=== PATIENT | male | born 1980 | race Caucasian/White ===

== ENCOUNTER 2022-01-17 11:04 | Emergency (ER) | payer SELFPAY ==
[2022-01-17 11:25] LABS: Absolute Neutrophil Ct (ANC) 6.06 x10^3/uL (1.4-6.9); Basophil (Absolute #) 0.04 x10^3/uL (0-0.4); Eosinophil % 2.2 % (0.00-5.0); Eosinophil (Absolute #) 0.18 x10^3/uL (0-0.5); Hematocrit 48.2 % (42-50); Hemoglobin 15.9 g/dL (12.5-18.0); Lymphocyte (Absolute #) 0.95 x10^3/uL (1.0-4.6); Lymphocytes % 11.8 % (24.0-44.0); Mean Cell Volume 81.3 fL (78-100); Mean Corpuscular Hemoglobin 26.8 pg (26-32); Mean Platelet Volume 10.6 fL (7.5-11.0); Monocyte (Absolute #) 0.79 x10^3/uL (0.0-1.3); Monocytes % 9.8 % (0.0-12.0); Neutrophil % 75.2 % (36.0-66.0); Platelet Count 265 x10^3/uL (150-450); Red Blood Count 5.93 x10^6/uL (4.1-5.6); White Blood Count 8.1 x10^3/uL (4.0-10.5)
[2022-01-17] MEDS ORDERED: BABY ASPIRIN 81 MG CHEW ONE (11:36)
[2022-01-17] MEDS ORDERED: Zofran 4 MG/2 ML VIAL ONE (11:36)
[2022-01-17] MEDS ORDERED: MORPHINE SULFATE 4 MG INJ ONE (11:37)
[2022-01-17] MEDS ORDERED: BABY ASPIRIN 81 MG CHEW PO ONE (11:41)
[2022-01-17 11:42] LABS: D-DIMER QUANTITATIVE 0.19 mg/L (0.0-0.50); INR 1.02 (0.8-3.0); PROTIME 10.8 SECONDS (9.4-12.5); PTT 29.1 SECONDS (25.1-36.5)
[2022-01-17 11:47] LABS: ALBUMIN 4.8 g/dL (3.5-5.0); ALKALINE PHOSPHATASE 111 U/L (38-126); ANION GAP 9.3 MEQ/L (5-15); BLOOD UREA NITROGEN 19 mg/dL (9-20); CHLORIDE 103 mmol/L (98-107); CK-Creatinine Phosphokinase 462 U/L (55-170); Calcium 8.7 mg/dL (8.4-10.2); Carbon Dioxide 31 mmol/L (22-30); Creatinine 1 1.04 mg/dL (0.66-1.25); EST GLOMERULAR FILTRATION RATE > 60.0 ML/MIN; Glucose 83 mg/dL (74-106); NT PRO BNP 56.8 pg/mL (0-450); Potassium 4.4 mmol/L (3.5-5.1); SGOT/AST 37 U/L (17-59); SGPT/ALT 30 U/L (0-50); SODIUM 139 mmol/L (137-145)
--- NOTE | 2022-01-17 12:01 | XRAY ---
Indication: Chest pain. Comparison: None Portable chest demonstrates normal heart, lungs, and bony thorax with incidental azygous lobe.
[2022-01-17] MEDS ORDERED: Sodium Chloride 0.9% 1000 ML 1,000 ML IV STA (12:32)
[2022-01-17] MEDS ORDERED: Sodium Chloride 0.9% 1000 ML 1,000 ML ONE (12:38)
[2022-01-17 12:54] LABS: Amphetamine,Urine NEGATIVE (NEGATIVE); Barbiturate,Urine NEGATIVE (NEGATIVE); Benzodiazepine,Urine NEGATIVE (NEGATIVE); Cocaine,Urine NEGATIVE (NEGATIVE); Methadone,Urine NEGATIVE (NEGATIVE); Opiate,Urine NEGATIVE (NEGATIVE); PCP,Urine NEGATIVE (NEGATIVE); THC,Urine NEGATIVE (NEGATIVE)
[2022-01-17 13:23] VITALS: BP 208/131; PULSE 76; O2SAT 99
--- NOTE | 2022-01-17 13:31 | ERPHSYRPT ---
- History of Present Illness Time Seen by Provider: 01/17/22 11:09 Historian: patient Exam Limitations: no limitations Patient Subjective Stated Complaint: Chest pain Triage Nursing Assessment: Patient ambulated back to ED and transferred self to bed. Patient A+O X 3. Patient's skin pink,warm and dry. Patient complains of chest pain that started 20 min prior to ED visit. 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 Patient complains of pain 07/30. Physician History: 41 years old male with history of hypertension noncompliant with medications, tobacco abuse presented in the ER with sudden onset substernal/sternal chest pain with radiation to the right arm/elbow and then to the jaw and neck. Later on it started to radiate to the back and shoulder blade area. Moderate to severe sharp nature pain with some pressure sensation. Patient reported was severe on presentation in the ER and gradually started to improve on its own without any medication. Does not want any pain medications currently. Denies any palpitations or shortness of breath associated with it. No history of CAD in the past. Timing/Duration: hour(s) (0.5), constant, sudden, worse Activities at Onset: activity Quality: sharpness Location: central Chest Pain Radiation: jaw, neck, arm, back Severity of Pain-Max: severe Severity of Pain-Current: moderate Modifying Factors: Improves With: nothing Associated Symptoms: denies symptoms Prior Chest Pain/Cardiac Workup: no prior chest pain Nitro Today/Relief: no nitro taken today Aspirin Treatment Today: no aspirin today Allergies/Adverse Reactions: Sulfa (Sulfonamide Antibiotics) Allergy (Verified 01/17/22 11:06) Home Medications: No Reportable Medications [No Reported Medications] 01/17/22 [History] Hx Influenza Vaccination/Date Given: No Hx Pneumococcal Vaccination/Date Given: No Immunizations Up to Date: Yes Travel Risk - International Travel Have you traveled outside of the country in past 3 weeks: No - Coronavirus Screening Are you exhibiting any of the following symptoms?: No Close contact with a COVID-19 positive Pt in past 14-21 Days: No - Vaccine Status Have you recieved a Covid-19 vaccination: Yes Application Dba: Unknown - Vaccination Dates Date of 2cond Vaccination (if applicable): na Dates if Unknown: na - Review of Systems Constitutional: No Symptoms Eyes: No Symptoms Ears, Nose, & Throat: No Symptoms Respiratory: No Symptoms Cardiac: Chest Pain Abdominal/Gastrointestinal: No Symptoms Genitourinary Symptoms: No Symptoms Musculoskeletal: No Symptoms Skin: No Symptoms Neurological: No Symptoms Endocrine: No Symptoms Hematologic/Lymphatic: No Symptoms Immunological/Allergic: No Symptoms - Past Medical History Pertinent Past Medical History: Yes Neurological History: No Pertinent History ENT History: No Pertinent History Cardiac History: Hypertension Respiratory History: No Pertinent History Endocrine Medical History: No Pertinent History Musculoskeletal History: No Pertinent History GI Medical History: No Pertinent History History: No Pertinent History Psycho-Social History: Bipolar Male Reproductive Disorders: No Pertinent History - Past Surgical History Past Surgical History: Yes Neuro Surgical History: No Pertinent History Cardiac: No Pertinent History Respiratory: No Pertinent History Gastrointestinal: No Pertinent History Genitourinary: No Pertinent History Musculoskeletal: No Pertinent History Male Surgical History: No Pertinent History - Social History Smoking Status: Never smoker Exposure to second hand smoke: No Drug Use: none Patient Lives Alone: No - Nursing Vital Signs Nursing Vital Signs: Initial Vital Signs Temperature 97.5 F 01/17/22 11:07 Pulse Rate 82 01/17/22 11:07 Respiratory Rate 18 01/17/22 11:07 Blood Pressure 226/136 01/17/22 11:07 O2 Sat by Pulse Oximetry 97 01/17/22 11:07 Pain Scale Pain Intensity 0 - Physical Exam General Appearance: no apparent distress, alert, anxiety Eye Exam: PERRL/EOMI Ears, Nose, Throat Exam: normal ENT inspection, TMs normal, pharynx normal Neck Exam: normal inspection, non-tender, supple, full range of motion Respiratory Exam: normal breath sounds, lungs clear, No chest tenderness Cardiovascular Exam: regular rate/rhythm, normal heart sounds Gastrointestinal/Abdomen Exam: soft, normal bowel sounds, No tenderness Back Exam: normal inspection, normal range of motion Extremity Exam: normal inspection, normal range of motion Neurologic Exam: alert, oriented x 3, cooperative Skin Exam: normal color SpO2 Interpretation: normal SpO2: 99 O2 Delivery: Room Air - Course EKG Interpreted by Me: RATE (83), Sinus Rhythm, NORMAL AXIS, Right Bundle Branch Block Ordered Tests: Active Orders 24 hr Category Date Time Status AMA [Release AMA] OM.NOW Care 01/17/22 13:22 Active Blueprint Reader STAT Care 01/17/22 11:16 Active EKG-ER Only STAT Care 01/17/22 11:15 Active IV Insertion STAT Care 01/17/22 11:15 Active Pulse Oximetry (ED) STAT Care 01/17/22 11:15 Active CHEST 1 VIEW (PORTABLE) Stat Exams 01/17/22 11:16 Completed CBC W DIFF Stat Lab 01/17/22 11:20 Completed CK-Creatinine Phosphokinase Stat Lab 01/17/22 11:20 Completed CMP Stat Lab 01/17/22 11:20 Completed D-DIMER QUANTITATIVE Stat Lab 01/17/22 11:20 Completed NT PRO BNP Stat Lab 01/17/22 11:20 Completed PROTIME WITH INR Stat Lab 01/17/22 11:20 Completed PTT Stat Lab 01/17/22 11:20 Completed TROPONIN Q4H Lab 01/17/22 11:20 Completed TROPONIN Q4H Lab 01/17/22 15:30 Ordered TROPONIN Q4H Lab 01/17/22 19:30 Ordered Urine Triage Profile Stat Lab 01/17/22 12:15 Completed Medication Summary Discontinued Medications Generic Name Dose Route Start Last Admin Trade Name Freq PRN Reason Stop Dose Admin Aspirin Confirm 01/17/22 11:36 Aspirin 81 Mg Tab.Chew Administered 01/17/22 11:37 Dose 324 mg .ROUTE .STK-MED ONE Aspirin 324 mg 01/17/22 11:41 01/17/22 11:42 Aspirin 81 Mg Tab.Chew PO 01/17/22 11:42 324 mg STAT ONE Administration Sodium Chloride 1,000 mls @ 999 mls/hr 01/17/22 12:32 01/17/22 12:41 Sodium Chloride 0.9% 1000 Ml IV 01/17/22 13:32 999 mls/hr .Q1H1M STA Administration Sodium Chloride Confirm 01/17/22 12:38 Sodium Chloride 0.9% 1000 Ml Administered 01/17/22 12:39 Dose 1,000 mls @ ud .ROUTE .STK-MED ONE Morphine Sulfate Confirm 01/17/22 11:37 Morphine Sulfate 4 Mg/Ml Injection Administered 01/17/22 11:38 Dose 4 mg .ROUTE .STK-MED ONE Ondansetron HCl Confirm 01/17/22 11:36 Ondansetron Hcl 4 Mg/2 Ml Vial Administered 01/17/22 11:37 Dose 4 mg .ROUTE .STK-MED ONE Lab/Rad Data: Laboratory Result Diagrams 01/17/22 11:20 01/17/22 11:20 Laboratory Results 01/17/22 01/17/22 01/17/22 Range/Units 12:15 11:20 11:20 WBC (4.0-10.5) x10^3/uL RBC (4.1-5.6) x10^6/uL Hgb (12.5-18.0) g/dL Hct (42-50) % MCV (78-100) fL MCH (26-32) pg MCHC (32-36) g/dL RDW (11.5-14.0) % Plt Count (150-450) x10^3/uL MPV (7.5-11.0) fL Gran % (36.0-66.0) % Immature Gran % (Auto) (0.00-0.4) % Nucleat RBC Rel Count (0.00-0.1) % Eos # (Auto) (0-0.5) x10^3/uL Immature Gran # (Auto) (0.00-0.03) x10^3u/L Absolute Lymphs (auto) (1.0-4.6) x10^3/uL Absolute Monos (auto) (0.0-1.3) x10^3/uL Absolute Nucleated RBC (0.00-0.01) x10^3u/L Lymphocytes % (24.0-44.0) % Monocytes % (0.0-12.0) % Eosinophils % (0.00-5.0) % Basophils % (0.0-0.4) % Absolute Granulocytes (1.4-6.9) x10^3/uL Basophils # (0-0.4) x10^3/uL PT 10.8 (9.4-12.5) SECONDS INR 1.02 (0.8-3.0) APTT 29.1 (25.1-36.5) SECONDS D-Dimer 0.19 (0.0-0.50) mg/L Sodium (137-145) mmol/L Potassium (3.5-5.1) mmol/L Chloride (98-107) mmol/L Carbon Dioxide (22-30) mmol/L Anion Gap (5-15) MEQ/L BUN (9-20) mg/dL Creatinine (0.66-1.25) mg/dL Estimated GFR ML/MIN Glucose (74-106) mg/dL Calcium (8.4-10.2) mg/dL Total Bilirubin (0.2-1.3) mg/dL AST (17-59) U/L ALT (0-50) U/L Alkaline Phosphatase (38-126) U/L Creatine Kinase (55-170) U/L Troponin I < 0.012 (0.000-0.034) ng/mL NT-Pro-B Natriuret Pep (0-450) pg/mL Serum Total Protein (6.3-8.2) g/dL Albumin (3.5-5.0) g/dL Urine Opiates Level NEGATIVE (NEGATIVE) Ur Methadone NEGATIVE (NEGATIVE) Urine Barbiturates NEGATIVE (NEGATIVE) Ur Phencyclidine (PCP) NEGATIVE (NEGATIVE) Urine Amphetamine NEGATIVE (NEGATIVE) U Benzodiazepine Level NEGATIVE (NEGATIVE) Urine Cocaine NEGATIVE (NEGATIVE) Urine Marijuana (THC) NEGATIVE (NEGATIVE) 01/17/22 01/17/22 Range/Units 11:20 11:20 WBC 8.1 (4.0-10.5) x10^3/uL RBC 5.93 H (4.1-5.6) x10^6/uL Hgb 15.9 (12.5-18.0) g/dL Hct 48.2 (42-50) % MCV 81.3 (78-100) fL MCH 26.8 (26-32) pg MCHC 33.0 (32-36) g/dL RDW 13.0 (11.5-14.0) % Plt Count 265 (150-450) x10^3/uL MPV 10.6 (7.5-11.0) fL Gran % 75.2 H (36.0-66.0) % Immature Gran % (Auto) 0.5 H (0.00-0.4) % Nucleat RBC Rel Count 0.0 (0.00-0.1) % Eos # (Auto) 0.18 (0-0.5) x10^3/uL Immature Gran # (Auto) 0.04 H (0.00-0.03) x10^3u/L Absolute Lymphs (auto) 0.95 L (1.0-4.6) x10^3/uL Absolute Monos (auto) 0.79 (0.0-1.3) x10^3/uL Absolute Nucleated RBC 0.00 (0.00-0.01) x10^3u/L Lymphocytes % 11.8 L (24.0-44.0) % Monocytes % 9.8 (0.0-12.0) % Eosinophils % 2.2 (0.00-5.0) % Basophils % 0.5 (0.0-0.4) % Absolute Granulocytes 6.06 (1.4-6.9) x10^3/uL Basophils # 0.04 (0-0.4) x10^3/uL PT (9.4-12.5) SECONDS INR (0.8-3.0) APTT (25.1-36.5) SECONDS D-Dimer (0.0-0.50) mg/L Sodium 139 (137-145) mmol/L Potassium 4.4 (3.5-5.1) mmol/L Chloride 103 (98-107) mmol/L Carbon Dioxide 31 H (22-30) mmol/L Anion Gap 9.3 (5-15) MEQ/L BUN 19 (9-20) mg/dL Creatinine 1.04 (0.66-1.25) mg/dL Estimated GFR > 60.0 ML/MIN Glucose 83 (74-106) mg/dL Calcium 8.7 (8.4-10.2) mg/dL Total Bilirubin 0.70 (0.2-1.3) mg/dL AST 37 (17-59) U/L ALT 30 (0-50) U/L Alkaline Phosphatase 111 (38-126) U/L Creatine Kinase 462 H (55-170) U/L Troponin I (0.000-0.034) ng/mL NT-Pro-B Natriuret Pep 56.8 (0-450) pg/mL Serum Total Protein 8.0 (6.3-8.2) g/dL Albumin 4.8 (3.5-5.0) g/dL Urine Opiates Level (NEGATIVE) Ur Methadone (NEGATIVE) Urine Barbiturates (NEGATIVE) Ur Phencyclidine (PCP) (NEGATIVE) Urine Amphetamine (NEGATIVE) U Benzodiazepine Level (NEGATIVE) Urine Cocaine (NEGATIVE) Urine Marijuana (THC) (NEGATIVE) - Progress Progress: improved Air Movement: good Progress Note: 01/17/22 13:04 41 years old is evaluated for sudden onset chest pain. EKG showed sinus rhythm with incomplete right bundle branch block but no other acute ischemic changes. Initial troponins are negative. CK level is 462. Chest x- ray negative for any acute cardiopulmonary findings. Patient chest pain improved on its own and does not want any pain medication. He is given aspirin. Patient pain started almost half an hour ago and initial troponin could be falsely negative. Patient is uncontrolled hypertension and history of smoking with presentation symptoms I believe patient would have benefit with admission and trending cardiac enzymes. I discussed with who recommended transfer to facility with cardiology services at [facility]. I have discussed with hospitalist and [employer] consultant over the phone, reviewed history, work-up and patient is excepted for admission. I went back to speak with the patient and initially he was agreeable but later on he decided not to stay in the hospital here are to be transferred. Patient blood pressure is elevated, discussed with him risk of acute myocardial infarction, stroke with permanent disability including but still does not want to stay in the hospital. Patient states "I have my own reasons for not staying in the hospital including financial and family issues and will go to ER if has pain again". Patient does have prescription of antihypertensive which she is advised to take and follow-up with his primary care. Patient left immediately without instructions. He was not confused or altered at all and signed AMA papers. Blood Culture(s) Obtained: No Antibiotics given: No Discussed with : Other (Dr. Knapp and [employer] consultant from [facility]) Counseled pt/family regarding: lab results, diagnosis, need for follow-up, rad results - Departure Departure Disposition: AMA Clinical Impression: Precordial chest pain, Uncontrolled hypertension Condition: Stable Critical Care Time: No Referrals: Provider,Unknown [Primary Care Provider] - Follow up/PCP as directed
== END 2022-01-17 13:24 | disposition left against medical advice (07) ==
LOC: ED 11:04
DX: R07.2 Precordial pain (principal); I10 Essential (primary) hypertension
CPT/HCPCS: 36000; 36415; 71045; 80053; 80307; 82550; 83880; 84484; 85025; 85379; 85610; 85730; 93005; 93041; 94760; 99284; J2270; J2405; A9270-GY